=== PATIENT | male | born 1945 | race Two or more races ===

== ENCOUNTER 2019-01-20 07:20 | Inpatient (IN) | payer OTHER, MEDICAID | END 2019-01-22 22:53 | disposition home or self-care (01) | LOC: ER 07:20 → TELE 08:36 → TELE-DOU 23:35 → TELE-EAST 23:52 | DX: I11.0 Hypertensive heart disease with heart failure (principal); J96.20 Acute and chronic respiratory failure, unspecified whether with hypoxia or hypercapnia; E44.0 Moderate protein-calorie malnutrition; J44.1 Chronic obstructive pulmonary disease with (acute) exacerbation; I50.43 Acute on chronic combined systolic (congestive) and diastolic (congestive) heart failure; I42.9 Cardiomyopathy, unspecified; I25.10 Atherosclerotic heart disease of native coronary artery without angina pectoris; Z95.1 Presence of aortocoronary bypass graft; D63.8 Anemia in other chronic diseases classified elsewhere; E78.5 Hyperlipidemia, unspecified ==